=== PATIENT | male | born 1950 | race Caucasian/White ===

== ENCOUNTER 2016-12-27 11:38 | Emergency (ER) | payer MEDICARE ==
[~2016-12-27] VITALS: Ht 177.8 cm; Wt 74.0 kg
[2016-12-27 11:40] VITALS: BP 165/88; PULSE 90; RESP 20; TEMP 97.4; O2SAT 97
[2016-12-27] MEDS ORDERED: IBUP-232 PO (13:43)
--- NOTE | 2016-12-27 13:44 | PD ---
HPI Chief Complaint: Fall Time Seen by Provider: 13:37 Travel History International Travel<30 days: No Contact w/Intl Traveler<30days: No Traveled to known affect area: No History of Present Illness HPI Patient is a 66-year-old male presenting to emergency for evaluation of left knee and foot pain after sustaining a mechanical fall at approximately 10:30 this morning. Patient states that he was in the [employer] store and the floor was wet, he didn't realize the floor was wet and slipped falling onto his buttocks. He denies any head injury, loss of consciousness, back pain, abdominal pain. He states that his left knee is sore and feels stiff but he is able to ambulate and bend it. He states the instep of his left foot is also sore but he is able to walk once again. He has no other complaints at this time. PFSH Past Medical History Asthma: No Autoimmune Disease: No Blood Disorders: No Heart Rhythm Problems: No Cancer: No High Cholesterol: No Chest Pain: No Congestive Heart Failure: No Diabetes: No Diminished Hearing: No Endocrine: No GERD: No Genitourinary: No Hiatal Hernia: No Hypertension: Yes Immune Disorder: No Kidney Stones: Yes Musculoskeletal: No Neurologic: No Psychiatric: No Respiratory: No Myocardial Infarction: No Renal Failure: No Thyroid Disease: No Ulcer: No Past Surgical History Abdominal Surgery: No Cardiac Surgery: No Ear Surgery: No Endocrine Surgery: No Eye Surgery: No Genitourinary Surgery: No Gynecologic Surgery: No Joint Replacement: Yes (knee and hip replace) Oral Surgery: No Pacemaker: No Thoracic Surgery: No Social History Alcohol Use: No Tobacco Use: No Substance Use: No Allergies-Medications (Allergen,Severity, Reaction): Coded Allergies: Codeine (Verified Allergy, Intermediate, N/V - PER PATIENT, 12/27/16) Reported Meds & Prescriptions Reported Meds & Active Scripts Active Review of Systems Except as stated in HPI: all other systems reviewed are Neg Musculoskeletal: Positive: Myalgias, No: Edema Skin: No Change in Pigmentation Physical Exam Narrative GENERAL: Well-developed, well-nourished, alert elderly gentleman. Resting comfortably in no acute distress. SKIN: Warm and dry. HEAD: Atraumatic. Normocephalic. EYES: Pupils equal and round. No scleral icterus. No injection or drainage. ENT: No nasal bleeding or discharge. Mucous membranes pink and moist. NECK: Trachea midline. No JVD. CARDIOVASCULAR: Regular rate and rhythm. No murmur appreciated. RESPIRATORY: No accessory muscle use. Clear to auscultation. Breath sounds equal bilaterally. GASTROINTESTINAL: Abdomen soft, non-tender, nondistended. Hepatic and splenic margins not palpable. MUSCULOSKELETAL: No obvious deformities. No clubbing. No cyanosis. No edema. Left knee appears larger than the right, non-edematous. Patient states this is normal. Full range of motion with flexion and extension of left knee, left ankle and foot. No tenderness to palpation, no crepitus noted. NEUROLOGICAL: Awake and alert. No obvious cranial nerve deficits. Motor grossly within normal limits. Normal speech. PSYCHIATRIC: Appropriate mood and affect; insight and judgment normal. Data Data Last Documented VS Vital Signs Date Time Temp Pulse Resp B/P Pulse Ox O2 Delivery O2 Flow Rate FiO2 12/27/16 11:40 97.4 90 20 165/88 97 Room Air MDM Medical Decision Making Medical Screen Exam Complete: Yes Emergency Medical Condition: Yes Interpretation(s) Vital Signs Date Time Temp Pulse Resp B/P Pulse Ox O2 Delivery O2 Flow Rate FiO2 12/27/16 11:40 97.4 90 20 165/88 97 Room Air Differential Diagnosis Sprain versus strain versus contusion versus effusion versus fracture versus other Narrative Course Patient is a 66-year-old male presenting to the emergency department 3 hours after sustaining a mechanical fall at a store due to the wet floor. Patient is neurologically intact, he has full range of motion in his left knee and foot. Patient was ambulatory in the emergency department. At this time conservative management is advisable. Patient has not taken anything for this pain this morning. Patient is encouraged to rest, ice alternating with heat to his affected extremity. He is encouraged to continue range of motion exercises. He is encouraged to follow-up with his primary care provider Dr. Puente. He is encouraged to return to emergency department for any new or worsening symptoms. Patient verbalized understanding of these instructions. Patient stable for discharge. Diagnosis Primary Impression: Fall Qualified Code: W19.XXXA - Fall, initial encounter Additional Impression: Knee pain Qualified Code: M25.562 - Left knee pain, unspecified chronicity Referrals: Nicola Puente MD 2 days Patient Instructions: General Instructions, Knee Exercises (GEN), Knee Pain (ED ) Additional Instructions: Follow-up with your primary doctor Alternate heat and ice to the affected joint, continue range of motion exercises , avoid exacerbating activities Return to emergency department for any new or worsening symptoms Take medications as directed Med/Other Pt SpecificInfo: Prescription(s) given Scripts Ibuprofen 600 Mg Flp645 Mg PO Q8HR PRN (PAIN) #30 TAB Ref 0 Prov:Quiana Durham 12/27/16 Disposition: 01 DISCHARGE HOME Condition: Stable Quiana Durham Dec 27, 2016 13:43
== END 2016-12-27 14:15 | disposition home or self-care (01) ==
LOC: NEPB 11:38
DX: M25.562 Pain in left knee (principal); M79.672 Pain in left foot; I10 Essential (primary) hypertension; W01.0XXA Fall on same level from slipping, tripping and stumbling without subsequent striking against object, initial encounter; Y93.01 Activity, walking, marching and hiking; Y92.512 Supermarket, store or market as the place of occurrence of the external cause
CPT/HCPCS: 99283

== ENCOUNTER 2017-01-01 01:26 | Emergency (ER) | payer MEDICARE ==
[~2017-01-01] VITALS: Ht 180.3 cm; Wt 74.0 kg
[~2017-01-01 01:26] MED LIST: IBUP-232 PO
[2017-01-01 01:29] VITALS: BP 168/90; PULSE 80; RESP 16; TEMP 98; O2SAT 96
[2017-01-01] MEDS ORDERED: ONDANSETRON ODT 4 MG TAB PO ONE (03:00)
[2017-01-01] MEDS ORDERED: ZOFR4TAB3 SL (03:12)
--- NOTE | 2017-01-01 03:12 | PD ---
HPI Chief Complaint: GI Complaint Time Seen by Provider: 02:56 Travel History International Travel<30 days: No Contact w/Intl Traveler<30days: No Traveled to known affect area: No History of Present Illness HPI 66-year-old male complains of nausea, left knee pain and left ankle injury. Patient states that he fell a few days ago and started having left knee pain. Patient states the pain aching pain localized to left knee. Patient also noticed bruising to left ankle. Patient status post left knee replacement in the past. Patient stated his eye having nausea for the past 2 days. Patient denies any headache. Patient denies any dizziness. Patient denies any chest pain or shortness of breath. Patient denies abdominal pain. Patient denies any vomiting or diarrhea. Patient denies any fever chills or back pain. PFSH Past Medical History Asthma: No Autoimmune Disease: No Blood Disorders: No Heart Rhythm Problems: No Cancer: No Cardiovascular Problems: Yes (HTN) High Cholesterol: No Chest Pain: No Congestive Heart Failure: No Diabetes: No Diminished Hearing: No Endocrine: No GERD: No Genitourinary: No Hiatal Hernia: No Hypertension: Yes Immune Disorder: No Kidney Stones: Yes Musculoskeletal: No Neurologic: No Psychiatric: No Respiratory: No Myocardial Infarction: No Renal Failure: No Thyroid Disease: No Ulcer: No Tetanus Vaccination: Unknown Past Surgical History Abdominal Surgery: No Cardiac Surgery: No Ear Surgery: No Endocrine Surgery: No Eye Surgery: No Genitourinary Surgery: No Gynecologic Surgery: No Joint Replacement: Yes (knee and hip replace) Oral Surgery: No Pacemaker: No Thoracic Surgery: No Other Surgery: Yes Social History Alcohol Use: No Tobacco Use: No Substance Use: No Allergies-Medications (Allergen,Severity, Reaction): Coded Allergies: Codeine (Verified Allergy, Intermediate, N/V - PER PATIENT, 01/01/17) Ibuprofen (Verified Adverse Reaction, Unknown, Nausea/Vomiting, 01/01/17) Reported Meds & Prescriptions Reported Meds & Active Scripts Active Zofran Odt (Ondansetron Odt) 4 Mg Tab 4 Mg SL Q6HR PRN Ibuprofen 600 Mg Tab 600 Mg PO Q8HR PRN Review of Systems General / Constitutional: No: Fever Eyes: No: Visual changes HENT: No: Headaches Cardiovascular: No: Chest Pain or Discomfort Respiratory: No: Shortness of Breath Gastrointestinal: Positive: Nausea, No: Abdominal Pain Genitourinary: No: Dysuria Musculoskeletal: Positive: Pain Skin: No Rash Neurologic: No: Weakness Psychiatric: No: Depression Endocrine: No: Polydipsia Hematologic/Lymphatic: No: Easy Bruising Physical Exam Narrative GENERAL: Well-nourished, well-developed patient. SKIN: Warm and dry. HEAD: Normocephalic. EYES: No scleral icterus. No injection or drainage. NECK: Supple, trachea midline. No JVD or lymphadenopathy. CARDIOVASCULAR: Regular rate and rhythm without murmurs, gallops, or rubs. RESPIRATORY: Breath sounds equal bilaterally. No accessory muscle use. GASTROINTESTINAL: Abdomen soft, non-tender, nondistended. MUSCULOSKELETAL: Patient has mild soft tissue swelling with tenderness diffusely over the left knee joint. Full range of motion the left knee. No tenderness on palpation of the left ankle. Ecchymosis on the medial lateral malleolus area noted. Full range of motion of the toes. BACK: Nontender without obvious deformity. No CVA tenderness. Neurologic exam normal. Data Data Last Documented VS Vital Signs Date Time Temp Pulse Resp B/P Pulse Ox O2 Delivery O2 Flow Rate FiO2 01/01/17 03:43 77 16 149/90 96 Room Air 01/01/17 01:29 98.0 Orders Ondansetron Odt (Zofran Odt) (01/01/17 03:00) Ankle, Complete ([id number]) (01/01/17 03:01) Knee, Ltd (1 Or 2vws) (01/01/17 03:01) [facility] Medical Decision Making Medical Screen Exam Complete: Yes Emergency Medical Condition: Yes Interpretation(s) Last Impressions Knee X-Ray 01/01/17300 Signed Impressions: Service Date/Time: Sunday, January 01, 2017 03:22 - CONCLUSION: Total knee arthroplasty. No acute abnormality. Octaviano Padgett Jr., MD Ankle X-Ray 01/01/17300 Signed Impressions: Service Date/Time: Sunday, January 01, 2017 03:19 - CONCLUSION: No acute abnormality. Octaviano Padgett Jr., MD Differential Diagnosis Differential diagnosis including sprain, fracture, dislocation, viral syndrome, gastroenteritis. Narrative Course 66-year-old male with nausea, left knee injury, left ankle injury. Zofran 4 mg ODT. Diagnosis Primary Impression: Gastroenteritis Additional Impressions: Left knee sprain Qualified Code: S83.92XA - Sprain of left knee, unspecified ligament, initial encounter Left ankle sprain Qualified Code: S93.402A - Sprain of left ankle, unspecified ligament, initial encounter Patient Instructions: General Instructions Additional Instructions: Tylenol for pain. Zofran as needed for nausea. Follow-up with personal physician and orthopedist. Return if persistent problem or worse. Scripts Ondansetron Odt (Zofran Odt)4 Mg Tab4 Mg SL Q6HR PRN (Nausea/Vomiting) #10 TAB Prov:Ambrose Juan MD 01/01/17 Disposition: 01 DISCHARGE HOME Condition: Stable Ambrose Juan MD Jan 01, 2017 03:12
--- NOTE | 2017-01-01 03:33 | RADRPT ---
EXAM DATE/TIME: 01/01/2017 03:22 [facility] COMPARISON: No previous studies available for comparison. INDICATIONS : Fall. Left knee pain. MEDICAL HISTORY : Osteoarthritis. SURGICAL HISTORY : Total knee replacement, left. ENCOUNTER: Initial ACUITY: 1 day PAIN SCORE: 6/10 LOCATION: Left lateral FINDINGS: 2 views of the left knee reveal a total knee prosthesis in good position. No fracture or dislocation. No joint effusion. Soft tissues are unremarkable. CONCLUSION: Total knee arthroplasty. No acute abnormality. Octaviano Padgett Jr., MD on January 01, 2017 at 3:31 Board Certified Radiologist. This report was verified electronically.
--- NOTE | 2017-01-01 03:33 | RADRPT ---
EXAM DATE/TIME: 01/01/2017 03:19 [facility] COMPARISON: No previous studies available for comparison. INDICATIONS : Fall. Left ankle pain. MEDICAL HISTORY : None. SURGICAL HISTORY : None. ENCOUNTER: Initial ACUITY: 1 day PAIN SCORE: 6/10 LOCATION: Left lateral FINDINGS: Three view exam was performed of the left ankle. The bony structures are in normal alignment. No ev idence of fracture, dislocation, or soft tissue swelling. The ankle mortise is intact. No radiopaqu e foreign bodies are seen. Bony mineralization is normal. Prominent spurring of the calcaneus as wel l as calcification of the Achilles tendon. CONCLUSION: No acute abnormality. Octaviano Padgett Jr., MD on January 01, 2017 at 3:30 Board Certified Radiologist. This report was verified electronically.
[2017-01-01 03:43] VITALS: BP 149/90; PULSE 77; RESP 16; O2SAT 96
== END 2017-01-01 04:24 | disposition home or self-care (01) ==
LOC: NEPE 01:26
DX: S83.92XA Sprain of unspecified site of left knee, initial encounter (principal); S93.402A Sprain of unspecified ligament of left ankle, initial encounter; K52.9 Noninfective gastroenteritis and colitis, unspecified; I10 Essential (primary) hypertension; W19.XXXA Unspecified fall, initial encounter; Y93.9 Activity, unspecified; Y92.9 Unspecified place or not applicable; Y99.8 Other external cause status
CPT/HCPCS: 73560; 73610; 99283